=== PATIENT | male | born 1980 ===

== ENCOUNTER 2023-03-21 20:39 | Emergency (ER) | payer BC, OTHER | END 2023-03-21 21:59 | disposition home or self-care (01) | LOC: MW.ED 20:39 | DX: F32.9 Major depressive disorder, single episode, unspecified (principal); F10.929 Alcohol use, unspecified with intoxication, unspecified; I10 Essential (primary) hypertension; F91.9 Conduct disorder, unspecified; Z91.048 Other nonmedicinal substance allergy status; Z79.899 Other long term (current) drug therapy; Z87.891 Personal history of nicotine dependence | CPT/HCPCS: 99284 ==

== ENCOUNTER 2023-03-22 16:13 | Emergency (ER) | payer BC ==
[2023-03-22 18:10] LABS: BASOPHILS PERCENT AUTO 0.4 % (0.0-1.5); EOSINOPHILS ABSOLUTE AUTO 0.1 K/uL (0.0-0.7); EOSINOPHILS PERCENT AUTO 1.3 % (0.0-7.0); HEMATOCRIT 45.3 % (38.0-50.0); HEMOGLOBIN 16.4 g/dL (13.0-17.0); LYMPHOCYTES ABSOLUTE AUTO 1.1 K/uL (0.6-2.4); LYMPHOCYTES PERCENT AUTO 14.7 % (16.0-40.0); MEAN CORPUSCULAR HEMOGLOBIN 31.8 pg (27.0-32.0); MEAN CORPUSCULAR HGB CONC 36.2 g/dL (31.0-37.0); MEAN CORPUSCULAR VOLUME 87.8 fL (80.0-98.0); MONOCYTES ABSOLUTE AUTO 0.8 K/uL (0.0-0.8); NEUTROPHILS ABSOLUTE AUTO 5.5 K/uL (1.4-5.7); NEUTROPHILS PERCENT AUTO 72.6 % (48.0-80.0); NRBC ABSOLUTE 0 K/uL; PLATELET COUNT,PLT 240 K/uL (150-400); RED BLOOD CELL COUNT 5.16 M/uL (4.50-5.90); WHITE BLOOD CELL COUNT,WBC 7.56 K/uL (4.0-11.0)
[2023-03-22 18:48] LABS: A/G RATIO 0.9 (0.9-1.6); ALBUMIN 3.7 g/dL (3.4-5.0); BILIRUBIN TOTAL 0.7 mg/dL (0.2-1.0); CALCIUM 9.1 mg/dL (8.5-10.1); CREATININE 0.9 mg/dL (0.8-1.3); EST CRCL DRUG DOSING (CG) 105.83 mL/min; POTASSIUM,K 3.8 mmol/L (3.5-5.1)
[2023-03-22 18:48] LABS: APPEARANCE,URINE CLEAR; BILIRUBIN,URINE NEGATIVE (NEGATIVE); COLOR,URINE YELLOW; GLUCOSE,URINE NEGATIVE (NEGATIVE); KETONES,URINE NEGATIVE (NEGATIVE); LEUKOCYTE ESTERASE,URINE NEGATIVE (NEGATIVE); NITRITE,URINE NEGATIVE (NEGATIVE); OCCULT BLOOD,URINE NEGATIVE (NEGATIVE); PH,URINE 7.5 (5.0-8.0); PROTEIN,URINE 30 mg/dL (NEGATIVE)
[2023-03-22 18:53] LABS: ACETAMINOPHEN <2.0 ug/mL; MAGNESIUM 1.9 mg/dL (1.8-2.4); TSH ULTRASENSITIVE 1.29 uIU/mL (0.36-3.74)
[2023-03-22 19:02] LABS: BACTERIA,URINE RARE (NEGATIVE); EPITHELIAL CELLS,URINE RARE (NONE-FEW); RBC,URINE 0-1 (0-2/HPF); WBC,URINE 0-1 (0-5/HPF)
[2023-03-22 19:03] LABS: AMPHETAMINES SCREEN, URINE NEGATIVE (CUTOFF=500); BARBITURATE SCREEN,URINE NEGATIVE (CUTOFF=200); BENZODIAZEPINES SCREEN,URINE PRESUMPTIVE POSITIVE (CUTOFF=150); BUPRENORPHINE SCREEN,URINE NEGATIVE (CUTOFF=10); METHADONE SCREEN, URINE NEGATIVE (CUTOFF=200); METHAMPHETAMINES SCREEN, URINE NEGATIVE (CUTOFF=500); OXYCODONE SCREEN,URINE NEGATIVE (CUT0FF=100); PCP SCREEN,URINE NEGATIVE (CUTOFF=25); PROPOXYPHENE SCREEN,URINE NEGATIVE (CUTOFF=300); THC SCREEN,URINE 20 NG/ML NEGATIVE (CUTOFF=50)
[2023-03-22] MEDS ORDERED: Nicotine 21 MG/24 Hr Patch TRDERM ONE (20:30)
== END 2023-03-22 20:30 ==
LOC: MW.ED 16:13
DX: F32.9 Major depressive disorder, single episode, unspecified (principal); I10 Essential (primary) hypertension; Z79.899 Other long term (current) drug therapy; Z91.048 Other nonmedicinal substance allergy status; Z20.822 Contact with and (suspected) exposure to COVID-19
CPT/HCPCS: 36415; 80053; 80143; 80179; 80305; 80307; 81001; 83735; 84443; 85025; 87635; 93005; 99285; A9270; 93010; U0002